=== PATIENT | female | born 1980 | race Caucasian/White ===

== ENCOUNTER → 2024-05-06 | Outpatient (CLI) | payer OTHER, SELFPAY ==
--- NOTE | 2024-05-06 09:05 | DI.US.S_ITS ---
PROCEDURE: US ART THORACIC OUT SYNDROME INDICATIONS: thorasic outlet syndrome TECHNIQUE: Color and pulse Doppler interrogation was performed of bilateral upper extremity arterial systems, with image documentation. COMPARISON: None. FINDINGS: Right upper extremity: Subclavian artery (proximal): 143 cm/sec, with triphasic flow. Subclavian artery (distal): 101 cm/sec, with triphasic flow. Provocative maneuvers were performed including symptomatic position, biceps Curl position, pushup/resistance position, arm 90 degree/costoclavicular position and pushed down/resistance position which demonstrate no significant change in velocities and waveforms. Left upper extremity: Subclavian artery (proximal): 93 cm/sec, with triphasic flow. Subclavian artery (distal): 96 cm/sec, with triphasic flow. Provocative maneuvers were performed including symptomatic position, biceps Curl position, pushup/resistance position, arm 90 degree/costoclavicular position and pushed down/resistance position which demonstrate no significant change in velocities and waveforms. No significant plaque seen bilaterally. IMPRESSION: Duplex Doppler examination demonstrating no significant change in waveforms involving the right or left upper extremity at the level of the thoracic outlet to indicate thoracic outlet syndrome. If symptoms persists, consider CT or MR angiography. Dictated by: Tomas BECKFORD Interpreted: Sheila Munguia MD on 05/09/2024 at 16:29 Transcribed by: FRANK on 05/09/2024 at 16:35 Approved by: Sheila Munguia M.D. on 05/14/2024 at 11:39
== END ==
PROVIDERS: Referring Provider Physician Assistant; Visit Provider Physician Assistant
DX: G54.0 Brachial plexus disorders (principal)
CPT/HCPCS: 93930